=== PATIENT | male | born 1965 | race Asian ===

== ENCOUNTER → 2024-09-25 | Outpatient (CLI) | payer BC, SELFPAY ==
--- NOTE | 2024-09-25 07:15 | XR_ITS ---
Examination: Retroperitoneal ultrasound, complete Technique: Multiple high resolution grayscale images of the retroperitoneum obtained, including kidneys and bladder. Exam date and time:September 25, 2024 0720 hours INDICATIONS: Diagnosis chronic kidney disease stage II FINDINGS: Right kidney 11.1 cm cortex 2.5 cm Midpole 11 mm cyst upper pole 12 mm cyst Left kidney 13.0 cm cortex 2.0 cm 26 mm lower pole 20 mm midpole 27 mm lateral 16mm mid cyst 7 mm calculus mid left kidney No hydronephrosis No bladder mass or bladder calculi Bladder prevoid volume 284 cc Prostate 5.0 x 4.6 x 4.6 cm: 54.2 cc 13 mm prostate cyst no solid prostate nodules IMPRESSION: Bilateral renal cysts 7 mm nonobstructing left renal calculus No hydronephrosis Moderate prostatomegaly no solid prostate nodules
== END | disposition home or self-care (01) ==
PROVIDERS: PCP Physician Assistant; Referring Provider Internal Medicine Nephrology; Visit Provider Internal Medicine Nephrology
DX: N28.1 Cyst of kidney, acquired (principal); N20.0 Calculus of kidney; N40.0 Benign prostatic hyperplasia without lower urinary tract symptoms
CPT/HCPCS: 76770